=== PATIENT | female | born 1960 | race Caucasian/White ===

== ENCOUNTER 2025-07-24 07:42 | Day surgery (SDC) | payer BC ==
[~2025-07-24 07:42] MED LIST: Sodium Chloride 0.9% 10 ML Syringe FLUSH PRN; Sodium Chloride 0.9% 10 ML Syringe FLUSH SCH
[2025-07-24] MEDS ORDERED: Midazolam 1 MG/ML 2 ML SDV ONE (08:15)
[2025-07-24] MEDS ORDERED: propofoL 500 MG/50 ML 50 ML ONE (08:15)
[2025-07-24] MEDS: Lactated Ringers 1,000 ML IV SCH (08:30)
[2025-07-24] MEDS: oxyCODONE ER 10 MG TAB.ER PO ONE (08:39)
[2025-07-24] MEDS ORDERED: Phenylephrine 1% 10 MG/ML SDV ONE (09:23)
[2025-07-24] MEDS ORDERED: ePHEDrine 50 MG/ML SDV ONE (09:37)
[2025-07-24] MEDS ORDERED: Ketorolac 15 MG/ML SDV ONE (09:38)
[2025-07-24] MEDS: Morphine 8 MG, EPINEPHrine 0.3 MG, Cefuroxime 750 MG, Ketorolac 30 MG, Sodium Chloride ... PRN (10:00)
[2025-07-24] MEDS ORDERED: fentaNYL 100 MCG/2 ML SDV IVPUSH PRN (11:35)
[2025-07-24] MEDS ORDERED: Ondansetron 4 MG/2 ML SDV IVPUSH PRN (11:35)
[2025-07-24] MEDS ORDERED: Lactated Ringers 1,000 ML ONE (13:09)
== END 2025-07-24 14:30 | disposition home or self-care (01) ==
LOC: JD.SDS 07:42
PROVIDERS: ATTEND Orthopaedic Surgery
DX: M16.11 Unilateral primary osteoarthritis, right hip (principal); I49.3 Ventricular premature depolarization; I10 Essential (primary) hypertension; Z88.2 Allergy status to sulfonamides; Z88.8 Allergy status to other drugs, medicaments and biological substances; Z87.891 Personal history of nicotine dependence; Z79.899 Other long term (current) drug therapy
CPT/HCPCS: 0055T; 27130; 73501; 97116; 97161; 97530; A9270; C1713; C1776; J0169; J0690; J0697; J1885; J2250; J2272; J2371; J2704; J3373; J7120; 01214; J3490